=== PATIENT | female | born 1980 | race Caucasian/White ===

== ENCOUNTER → 2016-10-31 | Outpatient (CLI) | payer BC ==
[~2016-10-31] MED LIST: ASPIRIN81 MG; ATIVAN PO; BACTRIM 400-801 TA1; BAYER ASPIRIN325 M1 PO; BAYER CHEWABLE81 MG; CHANTIX0.5 MG PO; CLOMID50 MG PO; DICYCLOMINE HCL20 MG PO; LORTAB 5-325 M1 EACH PO; LORTAB 5/500 TA1 TA1 PO; NO MEDICATIONS; PERCOCET 5-3251 TAB PO; PREDNISONE PO; PRILOSEC PO; PROVERA10 MG PO; ULTRAM PO; ZOFRANODT PO; ZOLOFT50 MG; ZOVIRAX400 MG PO
--- NOTE | ~2016-10-31 | MR2 ---
[facility] A Service of [facility] RADIOLOGY TEXT RESULTS PATIENT: MYRNA MORALES LOCATION: [facility] #: [id number] : 82 UNIT #: [id number] AGE: [address]: LEONARD CUEVAS MD (INT MED) SEX: F ORDER DR: [id number] [address] [address] [id number] O MR#: [id number] Acc #: [id number] NAME: MYRNA MORALES : 1980 SEX: F STUDY DATE/TIME: 10/31/2016 8:44 UNIT: [facility] ROOM: STUDY DESCRIPTION: MR Abdomen WWo Cont Attending Physician: Leonard Cuevas M.D. Referring Physician: Leonard Cuevas M.D. Ordering Physician: Leonard Cuevas M.D. Primary Care Physician: Leonard Cuevas M.D. MRI CENTER REPORT This report is preliminary unless electronic signature is present. EXAM MR abdomen INDICATIONS Adrenal hyperplasia. Abnormal CT scan of the abdomen. Adrenal nodule. TECHNIQUE Multiplanar MRI of the abdomen with and without IV contrast (16 mL MultiHance IV contrast). COMPARISON CT abdomen dated 06/02/2016, 04/24/2016 and 08/27/2014. FINDINGS The adrenal glands are uniformly thickened. This adrenal gland show diffuse drop in signal on the T1 "cdw-qm-tagct" series. This indicates benign adenomatous hyperplasia of the adrenal glands. No suspicious adrenal findings. The liver, pancreas, spleen, and kidneys are within normal limits. No hydronephrosis. The gallbladder is surgically absent. No intrahepatic or extrahepatic biliary dilatation. Bowel is not dilated. The abdominal aorta is normal in caliber. IMPRESSION 1. Benign adenomatous hyperplasia of both adrenal glands. 2. No suspicious findings are identified in the adrenal glands. Dictated by... Mahesh Khan M.D. [facility] A Service of [facility] RADIOLOGY TEXT RESULTS PATIENT: MYRNA M[facility]ALES [id number] [birth year] UNIT #: [id number] AGE: [address]: LEONARD CUEVAS MD (INT MED) SEX: F ORDER DR: THIS IS AN ELECTRONICALLY VERIFIED REPORT Mahesh Khan M.D. at 11/01/2016 9:41 AM MARYANA/james TD: 11/01/2016 08:29 JOB #: [id number] MRI CENTER REPORT Page 1 of 1
== END | disposition home or self-care (01) ==
LOC: SMRI 08:18
DX: E27.8 Other specified disorders of adrenal gland (principal); D35.02 Benign neoplasm of left adrenal gland; D35.01 Benign neoplasm of right adrenal gland
CPT/HCPCS: 74183; A9581

== ENCOUNTER 2017-02-08 21:44 | Emergency (ER) | payer BC ==
[~2017-02-08] VITALS: Ht 160 cm; Wt 75.3 kg
--- NOTE | ~2017-02-08 | CR127 ---
[facility] A Service of [facility] RADIOLOGY TEXT RESULTS PATIENT: MYRNA MORALES LOCATION: SED : 82 UNIT #: [id number] AGE: [address]: Bertha Alvares SEX: F ORDER DR: [id number] [place] [id number] E MR#: [id number] Acc #: [id number] NAME: MYRNA MORALES : 1980 SEX: F STUDY DATE/TIME: 02/08/2017 22:04 UNIT: SED ROOM: STUDY DESCRIPTION: CR Foot Complete Min 3 View Rt Attending Physician: Bertha Alvares Pa-C Ordering Physician: Bertha Alvares Pa-C Primary Care Physician: Hansel Cuevas M.D. MEDICAL IMAGING REPORT This report is preliminary unless electronic signature is present. EXAM Right foot, 3 views; 02/08/2017. HISTORY Right foot and ankle pain, status post fall off a curve. Twisting foot and ankle today at 16:30. FINDINGS The tarsal, metatarsal, and phalangeal elements are all anatomically normal in position and alignment. There are no articular defects. No fractures or radiopaque foreign bodies in the soft tissues are apparent. IMPRESSION Normal right foot. Dictated by... Hakeem Ojeda M.D. THIS IS AN ELECTRONICALLY VERIFIED REPORT Hakeem Ojeda M.D. at 02/09/2017 10:26 AM GEETHA/georges TD: 02/08/2017 22:52 JOB #: [id number] MEDICAL IMAGING REPORT Page 1 of 1
--- NOTE | ~2017-02-08 | CR21 ---
[facility]. [facility] A Service of [facility] RADIOLOGY TEXT RESULTS PATIENT: MYRNA MORALES LOCATION: SED : 82 UNIT #: [id number] AGE: [address]: Bertha Alvares SEX: F ORDER DR: [id number] [place] [id number] E MR#: [id number] Acc #: [id number] NAME: MYRNA MORALES : 1980 SEX: F STUDY DATE/TIME: 02/08/2017 22:04 UNIT: SED ROOM: STUDY DESCRIPTION: CR Ankle Min 3 Views Rt Attending Physician: Bertha Alvares Pa-C Ordering Physician: Bertha Alvares Pa-C Primary Care Physician: Hansel Cuevas M.D. MEDICAL IMAGING REPORT This report is preliminary unless electronic signature is present. EXAM Right ankle INDICATIONS Right ankle pain. Pain radiating to the right foot. Fell of a curb twisting the ankle. FINDINGS 3 views of the right ankle without comparison. There is no acute fracture or dislocation or ankle effusion. No foreign body. IMPRESSION Negative right ankle. Dictated by... Mahesh Khan M.D. THIS IS AN ELECTRONICALLY VERIFIED REPORT Mahesh Khan M.D. at 02/09/2017 3:13 PM [facility]/ambrosio TD: 02/08/2017 22:49 JOB #: [id number] MEDICAL IMAGING REPORT Page 1 of 1
[~2017-02-08 21:44] MED LIST changes: -CHANTIX0.5 MG PO; -PRILOSEC PO
[2017-02-08] MEDS ORDERED: PRILOSEC PO (21:54)
[2017-02-08] MEDS ORDERED: CHANTIX0.5 MG PO (21:55)
== END 2017-02-08 22:59 | disposition home or self-care (01) ==
LOC: SED 21:44
DX: S93.401A Sprain of unspecified ligament of right ankle, initial encounter (principal); F17.200 Nicotine dependence, unspecified, uncomplicated; Z79.82 Long term (current) use of aspirin; Z79.899 Other long term (current) drug therapy; Z91.010 Allergy to peanuts; Z91.040 Latex allergy status; X50.1XXA Overexertion from prolonged static or awkward postures, initial encounter; Y92.009 Unspecified place in unspecified non-institutional (private) residence as the place of occurrence of the external cause
CPT/HCPCS: 29540; 73610; 73630; 99283